=== PATIENT | female | born 1985 | race Two or more races ===

== ENCOUNTER 2020-11-25 11:49 | Inpatient (IN) | payer OTHER ==
[~2020-11-25] VITALS: Ht 175.3 cm; Wt 133.4 kg
[~2020-11-25 11:49] MED LIST: AMOX1TAB12 PO
[2020-11-26] MEDS ORDERED: ALLEGRA ALLERG180 MG PO (12:30)
[2020-11-27] MEDS ORDERED: INTEGRA CAPSUL1 EACH PO (09:12)
== END 2020-11-27 11:49 | disposition home or self-care (01) | DRG 812 ==
LOC: ER 11:49 → MEDI 17:38
PROVIDERS: ADMIT Internal Medicine; ATTEND Internal Medicine
PROC: 30233N1 Transfusion of Nonautologous Red Blood Cells into Peripheral Vein, Percutaneous Approach (ICD-10-PCS; principal; 2020-11-25)
DX: D62 Acute posthemorrhagic anemia (principal); N93.8 Other specified abnormal uterine and vaginal bleeding; R74.8 Abnormal levels of other serum enzymes